=== PATIENT | female | born 1985 | race Caucasian/White ===

== ENCOUNTER 2016-04-17 10:41 | Emergency (ER) | payer SELFPAY ==
[2016-04-17 11:09] VITALS: BP 146/60
--- NOTE | 2016-04-17 13:03 | UC ---
Neck Pain HPI - HPI Summary HPI Summary: neck pain and left arm pain x 1 week. Pt states she fell down stairs then also fell on ice x 2 on the same day. Had CT done at [facility] which she was told was normal. Pt had anterior discectomy with Dr. Calderón from [facility] in July 2016. Pain got better after the surg, but now exacerbated by these recent falls. No new injury. - History of Current Complaint Chief Complaint: UCBackPain Stated Complaint: FALL-BACK INJURY Time Seen by Provider: 04/17/16 12:37 Hx Obtained From: Patient Hx Last Menstrual Period: 03/20/16 Onset/Duration Of Injury/Symptoms: Weeks - 1 Mechanism Of Injury: Blunt Trauma - fall down stairs, 04/10/16 then fell on ice x 2 same day. Onset/Duration: Sudden Onset, Lasting Weeks - 1, Still Present Severity: Severe Pain Intensity: 8 Pain Scale Used: 0-10 Numeric Location: Discrete At: - left neck and left arm Character: Sharp Aggravating Factors: Nothing Alleviating Factors: Nothing Associated Signs & Symptoms: Positive: Paresthesia - in left arm Related History: Previous Neck Injury - Allergies/Home Medications Allergies/Adverse Reactions: Allergies Allergy/AdvReac Type Severity Reaction Status Date / Time Tetanus Toxoid Allergy Severe fatigue, Verified 04/17/16 11:09 swelling Latex Allergy Rash Verified 04/17/16 11:09 Home Medications: Home Medications Tizanidine HCl 6 mg PO DAILY 04/17/16 [History Confirmed 04/17/16] PMH/Surg Hx/FS Hx/Imm Hx Previously Healthy: No - recovering alcoholic Endocrine History Of: Reports: Thyroid Disease - hypothyroidism Denies: Diabetes, Hyperthyroidism, Hypothyroidism Cardiovascular History Of: Denies: Cardiac Disorders, Hypertension Respiratory History Of: Reports: Asthma Neurological History Of: Denies: TIA, Seizures Psychological History Of: Denies: Anxiety, Depression - Surgical History Surgical History: Yes Surgery Procedure, Year, and Place: gastric bipass. T&A. C SECTION. GASTRIC BYPASS REVISION. [facility] - Family History Known Family History: Positive: Other - RA and osteoarthritis - Social History Occupation: Unemployed - just got fired today from [employer] Alcohol Use: Occasionally Alcohol Amount: recovering alcoholic--SOBER DATE 01/24/2015 Substance Use Type: None Smoking Status (MU): Former Smoker Type: Cigarettes Amount Used/How Often: 1/2 ppd Length of Time of Smoking/Using Tobacco: 12 yrs on/off Have You Smoked in the Last Year: Yes When Did the Patient Quit Smoking/Using Tobacco: 07/21/2015 - Immunization History Most Recent Influenza Vaccination: current Review Of Systems Constitutional: Positive: Negative Skin: Positive: Negative Eyes: Positive: Negative ENT: Positive: Negative Respiratory: Positive: Negative Cardiovascular: Positive: Negative Gastrointestinal: Positive: Negative Genitourinary: Positive: Negative, Other - LMP February, states she is not PG Musculoskeletal: Positive: Arthralgia, Myalgia All Other Systems Reviewed And Are Negative: Yes Physical Exam Triage Information Reviewed: Yes Appearance: Well-Appearing, Well-Nourished, Pain Distress Vital Signs: Initial Vital Signs Temp 98.4 F 04/17/16 11:02 Pulse 54 04/17/16 11:02 Resp 16 04/17/16 11:02 BP 146/60 04/17/16 11:02 Pulse Ox 99 04/17/16 11:02 Vital Signs Reviewed: Yes Eyes: Positive: Conjunctiva Clear ENT: Positive: Normal ENT inspection Neck: Positive: Supple, Tenderness @ - post spines and left paraspinous Respiratory: Positive: Lungs clear, Normal breath sounds, No respiratory distress Cardiovascular: Positive: RRR, No Murmur, Pulses Normal, Brisk Capillary Refill Musculoskeletal: Positive: Strength Intact, ROM Intact Neurological: Positive: Alert, Muscle Tone Normal Psychological: Positive: Normal Response To Family Skin: Positive: rashes Neck Pain Course/Dx - Differential Dx/Diagnosis Differential Dx/HQI/PQRI: Arthritis, Cervical Fracture, Sprain, Strain Provider Diagnoses: cervical strain s/p anterior discectomy Discharge - Discharge Plan Condition: Stable Disposition: HOME Prescriptions: HYDROcodone/ACETAMIN 5-325 MG* [[place] 5-325 TAB*] 1 tab PO Q4H PRN #18 tab MDD 6 PRN Reason: Pain Patient Education Materials: Cervical Strain (ED) Referrals: Brea Joseph PA [Primary Care Provider] - Additional Instructions: Dr. Abreu made an appointment for you on Wednesday at 10:50am. You appointment is with ALLAN Betts in the [address] office of [facility]. [address] You will still also have your appointment in June with Dr. Calderón. You need to go to [facility] and machine operator picker the xray disc of the imaging that you had done there, and bring that disc to your appointment on Wednesday Go to the Emergency Room if you have any new or worsening symptoms.
== END 2016-04-17 13:17 | disposition home or self-care (01) ==
LOC: UCCORT 10:41
DX: S16.1XXA Strain of muscle, fascia and tendon at neck level, initial encounter (principal); F10.21 Alcohol dependence, in remission; W00.1XXA Fall from stairs and steps due to ice and snow, initial encounter; Y92.9 Unspecified place or not applicable; Z87.891 Personal history of nicotine dependence; Z98.890 Other specified postprocedural states; Z98.84 Bariatric surgery status; Z88.8 Allergy status to other drugs, medicaments and biological substances
CPT/HCPCS: 81025; 99213; G0463

== ENCOUNTER 2016-05-17 10:26 | Emergency (ER) | payer OTHER ==
[2016-05-17 12:03] VITALS: BP 162/86
--- NOTE | 2016-05-17 12:53 | UC ---
Throat Pain/Nasal Wm HPI - HPI Summary HPI Summary: Pt presents with c/o sore throat, cough, body aches, nasal congestion X 4 days. And left side diaphragm rib pain with coughing began last night. Pt did not get flu vaccine Pt reports that she does not like to go to the "doctors office" states that her BP is only elevated when at the doctors office. Pt is on antihypertensive - History of Current Complaint Chief Complaint: UCGeneralIllness Stated Complaint: THROAT,COUGH,CONGESTION Time Seen by Provider: 05/17/16 12:29 Hx Last Menstrual Period: 03/20/16 ?: No Onset/Duration: Gradual Onset, Lasting Days - days Severity: Mild Cough: Nonproductive Associated Signs & Symptoms: Positive: Sinus Discomfort - states she has chronic sinusitis - Epiglottits Risk Factors Epiglottis Risk Factors: Negative - Allergies/Home Medications Allergies/Adverse Reactions: Allergies Allergy/AdvReac Type Severity Reaction Status Date / Time Tetanus Toxoid Allergy Severe fatigue, Verified 05/17/16 11:48 swelling Latex Allergy Rash Verified 05/17/16 11:48 Home Medications: Home Medications Citalopram TAB* [Celexa TAB*] 20 mg PO DAILY 05/17/16 [History Confirmed ] Lisinopril [Zestril 5 MG-] 5 mg PO DAILY 05/17/16 [History Confirmed 05/17/16] [id number] W/ APAP [Tylenol Cold & Flu Severe 7-02-152-325 mg] 2 tab PO Q4HR PRN 05/17/16 [History Confirmed 05/17/16] PMH/Surg Hx/FS Hx/Imm Hx Previously Healthy: Yes - see pmh Endocrine History Of: Reports: Thyroid Disease - hypothyroidism Denies: Diabetes, Hyperthyroidism, Hypothyroidism Cardiovascular History Of: Reports: Hypertension Denies: Cardiac Disorders Respiratory History Of: Reports: Asthma Neurological History Of: Denies: TIA, Seizures Psychological History Of: Denies: Anxiety, Depression - Surgical History Surgical History: Yes Surgery Procedure, Year, and Place: gastric bipass. T&A. C SECTION. GASTRIC BYPASS REVISION. [facility] - Family History Known Family History: Positive: None, Other - RA and osteoarthritis - Social History Alcohol Use: None Alcohol Amount: recovering alcoholic--SOBER DATE 01/24/2015 Substance Use Type: None Smoking Status (MU): Heavy Every Day Tobacco Smoker Type: Cigarettes Amount Used/How Often: 1/2 ppd Length of Time of Smoking/Using Tobacco: 12 yrs on/off Have You Smoked in the Last Year: Yes When Did the Patient Quit Smoking/Using Tobacco: 07/21/2015 - Immunization History Most Recent Influenza Vaccination: current Review of Systems Constitutional: Negative Skin: Negative Eyes: Negative ENT: Sore Throat, Other - nasal congestion Respiratory: Negative Cardiovascular: Negative Gastrointestinal: Negative Genitourinary: Negative Motor: Negative Neurovascular: Negative Musculoskeletal: Myalgia - left lower trunk ~ rib 10-11 Neurological: Negative Psychological: Negative All Other Systems Reviewed And Are Negative: Yes Physical Exam Triage Information Reviewed: Yes Appearance: Well-Appearing Vital Signs: Initial Vital Signs Temp 97.0 F 05/17/16 11:55 Pulse 113 05/17/16 11:55 Resp 20 05/17/16 11:55 BP 162/86 05/17/16 11:55 Pulse Ox 96 05/17/16 11:55 Vital Signs Reviewed: Yes Eye Exam: Normal ENT Exam: Other ENT: Positive: Nasal congestion Neck exam: Normal Respiratory Exam: Normal Cardiovascular Exam: Normal Cardiovascular: Positive: Tachycardia - see vitals, pt reports whtie coat syndrome Musculoskeletal Exam: Normal Neurological Exam: Normal Psychological Exam: Normal Skin Exam: Normal Throat Pain/Nasal Course/Dx - Differential Dx/Diagnosis Differential Diagnosis/HQI/PQRI: Influenza, Pharyngitis, Sinusitis, URI, Other - PE Provider Diagnoses: viral syndrome. elevated BP-on hypertensive Discharge - Discharge Plan Condition: Stable Disposition: HOME Patient Education Materials: Viral Syndrome (ED) Referrals: Brea James PA [Primary Care Provider] - If Needed Additional Instructions: Please follow up with your PCP or return to clinic as needed.
== END 2016-05-17 13:29 | disposition home or self-care (01) ==
LOC: UCCORT 10:26
DX: B34.9 Viral infection, unspecified (principal); I10 Essential (primary) hypertension; Z88.7 Allergy status to serum and vaccine; Z98.84 Bariatric surgery status; Z87.891 Personal history of nicotine dependence
CPT/HCPCS: 87502; 99211; G0463

== ENCOUNTER 2016-08-13 07:04 | Emergency (ER) | payer OTHER ==
[2016-08-13 07:19] VITALS: BP 136/92
--- NOTE | 2016-08-13 07:36 | UC ---
Respiratory Complaint HPI - HPI Summary HPI Summary: one week history of cough with production, malaise, laryngitis. Saw Dr. Garcia on 08/10 for evaluation of dizziness, and because of the cough, was given 3 days of oral steroid which have not relieve the coughing. Hx of gastric bypass, and has been gagging with cough. Productive of clear to purulent sputum. Smoker x 15 years, has quit in past. Hx of hypertension, has been off of her lisinopril for the past 2 weeks because she ran out. History of recurrent sinusitis. Has used albuterol x 2 overnight. - History of Current Complaint Chief Complaint: UCRespiratory Stated Complaint: COUGH CONGESTION Time Seen by Provider: 08/13/16 07:25 Hx Obtained From: Patient Hx Last Menstrual Period: few months ago - has irregular periods, has had neg preg tests ?: No Onset/Duration: Gradual Onset Timing: Intermittent Episodes Severity Initially: Moderate Severity Currently: Moderate Character: Cough: Productive Aggravating Factors: Exertion, Deep Breaths, Recumbent Position Alleviating Factors: OTC Meds Associated Signs And Symptoms: Positive: Dyspnea, Nasal Congestion, Hoarseness, Sinus Discomfort - Risk Factors Pulmonary Embolism Risk Factors: Smoking Cardiac Risk Factors: Hypertension, Smoking Pseudomonas Risk Factors: Negative - Allergies/Home Medications Allergies/Adverse Reactions: Allergies Allergy/AdvReac Type Severity Reaction Status Date / Time Tetanus Toxoid Allergy Severe fatigue, Verified 08/13/16 07:11 swelling Latex Allergy Rash Verified 08/13/16 07:11 Home Medications: Home Medications Fluticasone NASAL SPRAY 50MCG* [Flonase NASAL SPRAY 50MCG*] 2 spray BOTH NARES DAILY 08/13/16 [History Confirmed 08/13/16] GuaiFENesin DM* [Robitussin DM*] 10 ml PO Q6H PRN 08/13/16 [History Confirmed ] Ibuprofen TAB* [Motrin TAB* 800 MG] 800 mg PO Q6H PRN 08/13/16 [History Confirmed 08/13/16] guaiFENesin ER TAB [Mucinex*] 600 mg PO BID PRN 08/13/16 [History Confirmed ] PMH/Surg Hx/FS Hx/Imm Hx - Additional Past Medical History Additional PMH: currently vertigo is being evaluated by Dr. Garcia recovering alcoholic Endocrine History: Thyroid Disease Psychological History: Anxiety, Depression, Post Traumatic Stress Disorder - Surgical History Surgical History: Yes Surgery Procedure, Year, and Place: gastric bypass. T&A. C SECTION. GASTRIC BYPASS REVISION. [facility]. back surgery - Family History Known Family History: Positive: Hypertension - father, Other - RA and osteoarthritis grandfather had a stroke. 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 Lives: With Family Alcohol Use: None Alcohol Amount: recovering alcoholic 35 days sober Substance Use Type: None Smoking Status (MU): Heavy Every Day Tobacco Smoker Type: Cigarettes Amount Used/How Often: 1/2 ppd Length of Time of Smoking/Using Tobacco: 12 yrs on/off Have You Smoked in the Last Year: Yes When Did the Patient Quit Smoking/Using Tobacco: 07/21/2015 - Immunization History Most Recent Influenza Vaccination: current Review of Systems Constitutional: Fatigue - poor sleep all week Skin: Negative Eyes: Negative ENT: Sore Throat, Ear Ache Respiratory: Shortness Of Breath, Cough Cardiovascular: Negative Gastrointestinal: Nausea Genitourinary: Negative Motor: Negative Neurovascular: Negative Musculoskeletal: Negative Neurological: Negative Psychological: Other - treated depression All Other Systems Reviewed And Are Negative: Yes Physical Exam Triage Information Reviewed: Yes Appearance: Ill-Appearing - looks fatigued, Obese Vital Signs: Initial Vital Signs Temp 97.8 F 08/13/16 07:14 Pulse 78 08/13/16 07:14 Resp 16 08/13/16 07:14 BP 136/92 08/13/16 07:14 Pulse Ox 100 08/13/16 07:14 Eye Exam: Normal ENT: Positive: TM red - left TM dull, red, retracted. Dental Exam: Normal Neck: Positive: Supple, Nontender, No Lymphadenopathy, Other: - scar left neck Respiratory: Positive: Wheezing - throughout both lung maciel. Negative: Respiratory distress Cardiovascular: Positive: RRR, No Murmur Musculoskeletal Exam: Normal Neurological Exam: Normal Neurological: Positive: Alert, Muscle Tone Normal Psychological Exam: Normal Skin Exam: Normal UC Diagnostic Evaluation - Laboratory O2 Sat by Pulse Oximetry: 100 Respiratory Course/Dx - Course Course Of Treatment: augmentin for sinusitis/otitis. continue albuterol, add steroid inhaler. - Differential Dx/Diagnosis Differential Diagnosis/HQI/PQRI: Asthma, Laryngitis, Sinusitis Provider Diagnoses: left otitis media. sinusitis. exacerbation of asthma Discharge - Discharge Plan Condition: Stable Disposition: HOME Prescriptions: Amoxicillin/Clavulanate TAB* [Augmentin TAB 875*] 875 mg PO BID #20 tab Fluticasone HFA 110 mcg(NF) [Flovent HFA 110 mcg(NF)] 2 puff .SEE ORDER BID #1 mdi Patient Education Materials: Sinusitis (ED) Additional Instructions: Add a steroid inhaler to decrease wheeze and cough, and continue use of albuterol as needed. Augmentin has been prescribed to treat sinus and ear infection. Ensure that you stop smoking. Resume use of lisinopril to control hypertension. The antibiotic can decrease the effectiveness of your control; please ensure that you use additional protection until your next cycle.
== END 2016-08-13 07:55 | disposition home or self-care (01) ==
LOC: UCCORT 07:04
DX: H66.92 Otitis media, unspecified, left ear (principal); J32.9 Chronic sinusitis, unspecified; J45.901 Unspecified asthma with (acute) exacerbation; I10 Essential (primary) hypertension; E07.9 Disorder of thyroid, unspecified; F41.9 Anxiety disorder, unspecified; F32.9 Major depressive disorder, single episode, unspecified; Z98.84 Bariatric surgery status; Z88.7 Allergy status to serum and vaccine; Z91.040 Latex allergy status; Z87.891 Personal history of nicotine dependence
CPT/HCPCS: 99212; G0463

== ENCOUNTER 2016-08-17 10:28 | Emergency (ER) | payer OTHER ==
[2016-08-17 11:05] VITALS: BP 128/79
--- NOTE | 2016-08-17 11:35 | UC ---
Throat Pain/Nasal Wm HPI - HPI Summary HPI Summary: compalint of wen rubalcava nasal congestion and ear pain that sarte 2 weeks ago seen at urgent care 08/13/16 started on augmentin still has a cough which is sometimes productive still having ear pain denies fever and chills no smoking for 3 dasy - History of Current Complaint Chief Complaint: UCRespiratory Stated Complaint: UPPER RESPIRATORY Time Seen by Provider: 08/17/16 11:17 Hx Obtained From: Patient Hx Last Menstrual Period: unknown, states irregular cycle - Allergies/Home Medications Allergies/Adverse Reactions: Allergies Allergy/AdvReac Type Severity Reaction Status Date / Time Tetanus Toxoid Allergy Severe fatigue, Verified 08/17/16 11:03 swelling Latex Allergy Rash Verified 08/17/16 11:03 Home Medications: Home Medications buPROPion TAB* [Wellbutrin TAB*] 150 mg PO DAILY 08/17/16 [History Confirmed ] PMH/Surg Hx/FS Hx/Imm Hx Previously Healthy: No - bronchitis, vertigo Endocrine History: Hypothyroidism Cardiovascular History: Hypertension Psychological History: Anxiety, Depression - Surgical History Surgical History: Yes Surgery Procedure, Year, and Place: gastric bypass. T&A. C SECTION. GASTRIC BYPASS REVISION. [facility]. back surgery - Family History Known Family History: Positive: None, Hypertension - father, Other - RA and osteoarthritis grandfather had a stroke. - Social History Occupation: Employed Full-time Lives: With Family Alcohol Use: None Alcohol Amount: recovering alcoholic 35 days sober Substance Use Type: None Smoking Status (MU): Heavy Every Day Tobacco Smoker Type: Cigarettes Amount Used/How Often: 1/2 ppd Length of Time of Smoking/Using Tobacco: 12 yrs on/off Have You Smoked in the Last Year: Yes When Did the Patient Quit Smoking/Using Tobacco: 07/21/2015 - Immunization History Most Recent Influenza Vaccination: current Review of Systems Constitutional: Negative Skin: Negative Eyes: Negative ENT: Ear Ache, Nasal Discharge Respiratory: Cough Cardiovascular: Negative Gastrointestinal: Negative Genitourinary: Negative Motor: Negative Neurovascular: Negative Musculoskeletal: Negative Neurological: Negative Psychological: Negative All Other Systems Reviewed And Are Negative: Yes Physical Exam Triage Information Reviewed: Yes Appearance: No Pain Distress, Well-Nourished Vital Signs: Initial Vital Signs Temp 97.4 F 08/17/16 11:00 Pulse 66 08/17/16 11:00 Resp 16 06/26/17 11:00 BP 128/79 08/17/16 11:00 Pulse Ox 99 08/17/16 11:00 Vital Signs Reviewed: Yes Eyes: Positive: Conjunctiva Clear ENT: Positive: Nasal congestion, TMs normal, Other: - no sinus tenderness. Negative: TM red Neck: Positive: No Lymphadenopathy Respiratory: Positive: Lungs clear, No respiratory distress, Wheezing - in the bases Cardiovascular: Positive: RRR, No Murmur, Pulses Normal Abdomen Description: Positive: Nontender, Soft Bowel Sounds: Positive: Present Musculoskeletal: Positive: No Edema Neurological: Positive: Alert Psychological Exam: Normal Skin Exam: Normal Throat Pain/Nasal Course/Dx - Course Course Of Treatment: exam completed. reassurance givene to patient that she will keep improveing and needs to continue antibiotic and albuterol treatments. discussed s/s ofwhen to seek care - Differential Dx/Diagnosis Provider Diagnoses: asthma exacerbation Discharge - Discharge Plan Condition: Stable Disposition: HOME Patient Education Materials: Asthma (ED) Referrals: SHAISTA Harden [Primary Care Provider] - Additional Instructions: Please continue antibiotic as directed Use your albuterol inhaler every 4-6 hours when needed for wheezing, shortness of breath or uncontrolled coughing. Increase fluids and rest Take acetaminophen or ibuprofen for fever or pain Please review your discharge instructions. If your symptoms do not improve please call your primary care provider or return to urgent care.
== END 2016-08-17 11:53 | disposition home or self-care (01) ==
LOC: UCCORT 10:28
DX: J45.901 Unspecified asthma with (acute) exacerbation (principal); Z98.84 Bariatric surgery status; Z87.891 Personal history of nicotine dependence; F10.21 Alcohol dependence, in remission
CPT/HCPCS: 99211; G0463

== ENCOUNTER 2017-01-24 13:32 | Emergency (ER) | payer OTHER ==
[2017-01-24 15:26] VITALS: BP 120/90
--- NOTE | 2017-01-24 15:43 | UC ---
Throat Pain/Nasal Wm HPI - HPI Summary HPI Summary: per nurses triage:Pain generalized onset 01/17/17. Pt is on weaning schedule for gabapentin for suspected nerve source of pain. Pt reports sx are similar to ETOH withdrawal hx, including headaches, muscle spasms. Fibromyalgia dx was given 01/12/17. Pt fell 01/22/17 against right side of body. Pt is due to start Lyrica 02/03/17. - History of Current Complaint Chief Complaint: UCLowerExtremity Stated Complaint: BACK PAIN Time Seen by Provider: 01/24/17 15:14 Hx Obtained From: Patient Hx Last Menstrual Period: mid NOV ?: No Onset/Duration: Still Present, Worse Since - decreaseing gabapentin Severity: Mild - Allergies/Home Medications Allergies/Adverse Reactions: Allergies Allergy/AdvReac Type Severity Reaction Status Date / Time Tetanus Toxoid Allergy Severe fatigue, Verified 01/24/17 15:26 swelling Latex Allergy Rash Verified 01/24/17 15:26 Home Medications: Home Medications Acetaminophen [Acetaminophen Extra Stren] 1,000 mg PO Q6H PRN 01/24/17 [History Confirmed 01/24/17] Calcium Carbonate-Cholecalcife [Calcium 600+D 600-400 mg-Unit] 2 tab PO DAILY [History Confirmed 01/24/17] Cholecalciferol [Vitamin D] 1,000 unit PO DAILY 01/24/17 [History Confirmed 05/08] Disulfiram TAB* [Antabuse 250 MG TAB*] 250 mg PO BID 01/24/17 [History Confirmed 01/24/17] Gabapentin 400 mg PO BID 01/24/17 [History Confirmed 01/24/17] SUMAtriptan TAB* [Imitrex TAB*] 25 mg PO SEE INSTRUCTIONS PRN 01/24/17 [History Confirmed 01/24/17] Topiramate [Topiramate ER 25 mg cap] 2 tab PO BID 01/24/17 [History Confirmed ] tiZANidine TAB* [Zanaflex TAB*] 4 mg PO TID PRN 01/24/17 [History Confirmed 05/08] PMH/Surg Hx/FS Hx/Imm Hx Previously Healthy: Yes - Surgical History Surgical History: Yes Surgery Procedure, Year, and Place: gastric bypass. T&A. C SECTION. GASTRIC BYPASS REVISION. [facility]. back surgery - Family History Known Family History: Positive: None, Hypertension - father, Other - RA and osteoarthritis grandfather had a stroke. - Social History Alcohol Use: None Alcohol Amount: recovering alcoholic 160 days sober Substance Use Type: None Smoking Status (MU): Light Every Day Tobacco Smoker Type: Cigarettes Amount Used/How Often: 1/2 ppd Length of Time of Smoking/Using Tobacco: 12 yrs on/off Have You Smoked in the Last Year: Yes When Did the Patient Quit Smoking/Using Tobacco: 07/21/2015 - Immunization History Most Recent Influenza Vaccination: current Review of Systems Constitutional: Negative Skin: Negative Eyes: Negative ENT: Negative Respiratory: Negative Cardiovascular: Negative Gastrointestinal: Negative Genitourinary: Negative Motor: Negative Neurovascular: Negative Musculoskeletal: Arthralgia, Myalgia - right shoulder and right lknee and hip Is Patient Immunocompromised?: No All Other Systems Reviewed And Are Negative: Yes Physical Exam Triage Information Reviewed: Yes Appearance: Well-Appearing, Well-Nourished, Pain Distress Vital Signs: Initial Vital Signs Temp 98.6 F 01/24/17 15:13 Pulse 72 01/24/17 15:13 Resp 16 01/24/17 15:13 BP 120/90 01/24/17 15:13 Vital Signs Reviewed: Yes Eye Exam: Normal ENT Exam: Normal Dental Exam: Normal Neck exam: Normal Respiratory Exam: Normal Cardiovascular Exam: Normal Abdominal Exam: Normal Bowel Sounds: Positive: Present Musculoskeletal: Positive: No Edema, ROM Limited @ - inright shouler motion above the head, no deformity or swelling, full ROM of lower extremity Neurological Exam: Normal Neurological: Positive: Alert, Muscle Tone Normal Psychological Exam: Normal Skin Exam: Normal Throat Pain/Nasal Course/Dx - Course Course Of Treatment: hx obtained, exam performed ,meds reviewed, sling provided for her arm, pain is moslty in the lower and mid trapezius. she is walking without difficulty, no swelling of the knees or hip, no deformity. advised motrin and tylenol, heat and rest. continue with her rheumatologists pain management schedule - Differential Dx/Diagnosis Provider Diagnoses: right leg pain, right shoulder pain. fibromyalgia Discharge - Discharge Plan Condition: Stable Disposition: HOME Patient Education Materials: Musculoskeletal Pain (ED) Referrals: Kostas Smith MD [Medical Doctor] - Additional Instructions: 1. Take th etylenol and ibuprofen together every 4 hours as needed for the next few days. 2. Heat the shoulder and hip and knee as much as you can. 3. Follow up with the physician who is managing your pain.
[2017-01-24] MEDS ORDERED: Acetaminophen TAB* 325 MG PO ONE (16:03)
== END 2017-01-24 16:44 | disposition home or self-care (01) ==
LOC: UCCORT 13:32
DX: M25.561 Pain in right knee (principal); M25.551 Pain in right hip; M25.511 Pain in right shoulder; M79.7 Fibromyalgia; Z88.7 Allergy status to serum and vaccine; Z91.040 Latex allergy status; Z98.84 Bariatric surgery status; Z87.891 Personal history of nicotine dependence
CPT/HCPCS: 99213; A9270-GY; G0463

== ENCOUNTER 2018-02-05 09:50 | Emergency (ER) | payer OTHER ==
[2018-02-05 10:16] VITALS: BP 156/73
--- NOTE | 2018-02-05 10:41 | UC ---
Throat Pain/Nasal Wm HPI - HPI Summary HPI Summary: 32-year-old female presents with 1 month history of intermittent sore throat. States over the last 2 days sore throat has become more constant and severe with tonsilar swelling, white patches, and swollen lymph nodes. Associated with some left ear pain, chills, sweating, and nausea. Denies fever, headache, nasal congestion, sinus pain, dysphagia, chest pain, shortness of breath, wheezing, abdominal pain, vomiting, or diarrhea. - History of Current Complaint Chief Complaint: UCGeneralIllness Stated Complaint: THROAT COMPLAINT Time Seen by Provider: 02/05/18 10:15 Hx Obtained From: Patient Hx Last Menstrual Period: 12/27/17 Pain Intensity: 3 - Allergies/Home Medications Allergies/Adverse Reactions: Allergies Allergy/AdvReac Type Severity Reaction Status Date / Time Tetanus Vaccines and Toxoid Allergy Severe fatigue, Verified 02/05/18 10:17 swelling latex Allergy Intermediate Rash Verified 02/05/18 10:17 PMH/Surg Hx/FS Hx/Imm Hx Endocrine History: Hypothyroidism Respiratory History: Asthma Psychological History: Anxiety, Depression, Post Traumatic Stress Disorder - Surgical History Surgical History: Yes Surgery Procedure, Year, and Place: gastric bypass. T&A. C SECTION. GASTRIC BYPASS REVISION. COLD [facility] BX. back surgery - Family History Known Family History: Positive: None, Hypertension - father, Other - RA and osteoarthritis grandfather had a stroke. 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 Negative: Fever Skin: Negative: Rash Eyes: Negative: Drainage, Eye Redness ENT: Positive: Sore Throat, Ear Ache. Negative: Nasal Discharge, Sinus Congestion, Sinus Pain/Tenderness Respiratory: Negative: Shortness Of Breath, Cough Cardiovascular: Negative: Palpitations, Chest Pain Gastrointestinal: Positive: Nausea. Negative: Abdominal Pain, Vomiting, Diarrhea Is Patient Immunocompromised?: No Physical Exam - Summary Physical Exam Summary: GENERAL APPEARANCE: Well developed, well nourished, alert and cooperative, and appears to be in no acute distress. HEAD: Atraumatic. normocephalic. EYES: Conjunctiva clear. No discharge. EARS: External auditory canals clear. Hearing grossly intact. Right TM intact, opaque with good cone of light. Left TM erythematous and bulging. NOSE: No nasal discharge. THROAT: Oral cavity normal. Teeth and gingiva in good general condition. Pharyngeal erythema and exudates present. NECK: Neck supple. Mild anterior cervical lymphadenopathy with tenderness. CARDIAC: Normal S1 and S2. No S3, S4 or murmurs. Rhythm is regular. There is no peripheral edema, cyanosis or pallor. Extremities are warm and well perfused. Capillary refill is less than 2 seconds. LUNGS: Bilateral mild wheezes without rales or rhonchi. ABDOMEN: Positive bowel sounds. Soft, nondistended, nontender. No guarding or rebound. No masses or hepatosplenomegally. SKIN: Skin normal color, texture and turgor with no lesions or eruptions. Triage Information Reviewed: Yes Vital Signs: Initial Vital Signs Temp 98.1 F 02/05/18 10:13 Pulse 98 02/05/18 10:13 Resp 18 02/05/18 10:13 BP 156/73 02/05/18 10:13 Pulse Ox 98 02/05/18 10:13 Vital Signs Reviewed: Yes Diagnostics - Laboratory Diagnostic Studies Completed/Ordered: Rapid strep positive Throat Pain/Nasal Course/Dx - Course Course Of Treatment: 32-year-old female presents with 1 month history of intermittent sore throat. States over the last 2 days sore throat has become more constant and severe with tonsilar swelling, white patches, and swollen lymph nodes. Associated with some left ear pain, chills, sweating, and nausea. Denies fever, headache, nasal congestion, sinus pain, dysphagia, chest pain, shortness of breath, wheezing, abdominal pain, vomiting, or diarrhea. Afebrile. VSS. Exam revealed pharyngeal erythema, tonsilar exudate, anterior cervical lymphadenopathy, as well as a left otitis media. Rapid strep positive. With otits media present as well as the positive strep will treat with amoxicillin 875 mg BID x 10 days as well as symptomatic treatment. She is to follow up with her PCP in 2 weeks for recheck or sooner if problems. Warning symptoms reviewed. Verbalizes understanding and agrees with POC. - Differential Dx/Diagnosis Differential Diagnosis/HQI/PQRI: Mononucleosis, Pharyngitis, Tonsillitis, URI Provider Diagnosis: Strep pharyngitis, Left otitis media with effusion Discharge - Sign-Out/Discharge Documenting (check all that apply): Patient Departure All imaging exams completed and their final reports reviewed: No Studies - Discharge Plan Condition: Stable Disposition: HOME Prescriptions: Amoxicillin PO (*) [Amoxicillin 875 MG (*)] 875 mg PO BID #20 tab Patient Education Materials: Strep Throat (ED) Referrals: Kim Oconnor, NURSE ESTHETICIAN [Primary Care Provider] - 7 Days (If no improvement.) Additional Instructions: Your rapid strep test in the clinic today was positive. You also had evidence of a left ear infection. We will start you on an antibiotic to treat the infection. Start amoxicillin 875 mg 1 tab twice a day for 10 days. Be sure to complete the full 10 days even if you are feeling better. After you have been on antibiotics for 3 days, throw out your toothbrush and replace with a new one to prevent reinfection. Drink plenty of fluids to avoid dehydration especially if you are running any fever. Use salt water gargles several times a day. Take over the counter acetaminophen (Tylenol) or ibuprofen (Advil, Motrin) according to directions as needed for pain or fever. You may also use Chloraseptic spray or Cepacol lonzenges according to directions which contain a numbing medication and can provide some temporary relief from your sore throat. Follow up with your primary care provider in 2 weeks for recheck of symptoms. Sooner if needed. Seek immediate medical attention in the emergency room if you have fever greater than 100.5 F despite taking acetaminophen or ibuprofen, are unable to swallow or develop drooling, are unable to open your mouth fully, are unable to eat or drink, have pain that is not relieved with over the counter pain medication, there is drainage of blood coming from your ear, you have any difficulty breathing, or any worsening of symptoms. - Billing Disposition and Condition Condition: STABLE Disposition: Home
== END 2018-02-05 10:53 | disposition home or self-care (01) ==
LOC: UCCORT 09:50
DX: H65.92 Unspecified nonsuppurative otitis media, left ear (principal); Z88.7 Allergy status to serum and vaccine; J02.0 Streptococcal pharyngitis; Z87.891 Personal history of nicotine dependence
CPT/HCPCS: 87651; 99212; G0463

== ENCOUNTER 2018-04-08 13:43 | Emergency (ER) | payer OTHER ==
[2018-04-08 14:27] VITALS: BP 94/51
--- NOTE | 2018-04-08 14:54 | UC ---
Eye Complaint HPI - HPI Summary HPI Summary: The patient is a 32-year-old female with right eye redness, irritation, and discharge which has been progressively worsening since this morning. She does not wear contact lenses. I have warned body sensation. She has some mild sinus type symptoms. She is currently living in a [facility] house. She is been sober for 10 months. - History of Current Complaint Chief Complaint: UCEye Stated Complaint: RIGHT EYE COMPLAINT Time Seen by Provider: 04/08/18 14:44 Hx Obtained From: Patient Hx Last Menstrual Period: 03/14/18 Onset/Duration: Gradual Onset, Lasting Hours Timing: Constant Severity Initially: Mild Severity Currently: Moderate Pain Intensity: 2 Pain Scale Used: 0-10 Numeric Aggravating Factor(s): Nothing Alleviating Factor(s): Nothing Associated Signs And Symptoms: Positive: Drainage (Purulent). Negative: Photophobia, Fever, Swelling - Risk Factors Penetrating Injury Risk Factor: Negative Globe Rupture Risk Factors: Negative Acute Glaucoma Risk Factors: Negative - Allergies/Home Medications Allergies/Adverse Reactions: Allergies Allergy/AdvReac Type Severity Reaction Status Date / Time Tetanus Vaccines and Toxoid Allergy Severe fatigue, Verified 02/05/18 10:17 swelling latex Allergy Intermediate Rash Verified 02/05/18 10:17 adhesive tape Allergy Unknown Rash Verified 04/08/18 14:10 Home Medications: Home Medications Ascorbic Acid TAB* [Vitamin C TAB*] 500 mg PO DAILY 04/08/18 [History Confirmed 04/08/18] Buprenorp/Nalox 8-2 MG FILM [Suboxone 8 mg-2 mg Sl Film] 1.5 each SL DAILY 04/08 [History Confirmed 04/08/18] Ferrous Sulfate TAB* 325 mg PO DAILY 04/08/18 [History Confirmed 04/08/18] Lisinopril TAB* [Prinivil TAB*] 5 mg PO DAILY 04/08/18 [History Confirmed ] Mirtazapine TAB* [Remeron TAB*] 30 mg PO BEDTIME 04/08/18 [History Confirmed ] cloNIDine TAB* [Catapres 0.1 MG TAB*] 0.2 mg PO QID PRN 04/08/18 [History Confirmed 04/08/18] PMH/Surg Hx/FS Hx/Imm Hx Previously Healthy: Yes - hx opiate abuse Cardiovascular History: Hypertension - Surgical History Surgical History: Yes Surgery Procedure, Year, and Place: gastric bypass. T&A. C SECTION. GASTRIC BYPASS REVISION. COLD [facility]. back surgery - Family History Known Family History: Positive: Cardiac Disease, Hypertension - father, Diabetes , Other - RA and osteoarthritis grandfather had a stroke. - Social History Alcohol Use: None Alcohol Amount: RECOVERING ALCOHOLIC AND OPIATE DEPENDENCE Substance Use Type: Prescribed Smoking Status (MU): Light Every Day Tobacco Smoker Type: Cigarettes Amount Used/How Often: 1/2 ppd Length of Time of Smoking/Using Tobacco: 12 yrs on/off Have You Smoked in the Last Year: Yes When Did the Patient Quit Smoking/Using Tobacco: 07/21/2015 - Immunization History Most Recent Influenza Vaccination: current Review of Systems All Other Systems Reviewed And Are Negative: Yes Constitutional: Positive: Negative Skin: Positive: Negative Eyes: Positive: Drainage, Eye Redness ENT: Positive: Negative Respiratory: Positive: Negative Cardiovascular: Positive: Negative Gastrointestinal: Positive: Negative Genitourinary: Positive: Negative Motor: Positive: Negative Neurovascular: Positive: Negative Musculoskeletal: Positive: Negative Neurological: Positive: Negative Psychological: Positive: Negative Physical Exam Triage Information Reviewed: Yes Appearance: Well-Appearing, No Pain Distress Vital Signs: Initial Vital Signs Temp 98.2 F 04/08/18 14:17 Pulse 58 04/08/18 14:17 Resp 18 04/08/18 14:17 BP 94/51 04/08/18 14:17 Pulse Ox 99 04/08/18 14:17 Vital Signs Reviewed: Yes Eyes: Positive: Conjunctiva Inflamed - R, Discharge - R, Other: - EOMI/PERRL ENT: Positive: Hearing grossly normal, TMs normal, Uvula midline. Negative: Nasal congestion, Nasal drainage, Tonsillar swelling, Tonsillar exudate, Trismus , Muffled voice, Hoarse voice, Dental tenderness, Sinus tenderness Neck: Positive: Supple, Nontender, No Lymphadenopathy Respiratory: Positive: Lungs clear, Normal breath sounds, No respiratory distress, No accessory muscle use Cardiovascular: Positive: RRR, No Murmur, Pulses Normal Musculoskeletal: Positive: ROM Intact, No Edema Neurological: Positive: Alert Psychological Exam: Normal Skin Exam: Normal Eye Complaint Course/Dx - Differential Dx/Diagnosis Provider Diagnosis: Conjunctivitis, right eye Discharge - Sign-Out/Discharge Documenting (check all that apply): Patient Departure All imaging exams completed and their final reports reviewed: No Studies - Discharge Plan Condition: Stable Disposition: HOME Prescriptions: Polymyx/Trimethoprim OPTH* [Polytrim OPHTH*] 1 - 2 drop RIGHT EYE QID 7 Days #1 btl Patient Education Materials: Conjunctivitis (ED) Referrals: Kim Oconnor, TURF GROWER [Primary Care Provider] - 3 Days (if not better ) Additional Instructions: I suggest you get rechecked for worsening symptoms or if not better in 4 days If infection spreads to your left eye use the drops on it as well - Billing Disposition and Condition Condition: STABLE Disposition: Home
== END 2018-04-08 15:03 | disposition home or self-care (01) ==
LOC: UCCORT 13:43
DX: H10.9 Unspecified conjunctivitis (principal); I10 Essential (primary) hypertension; F17.210 Nicotine dependence, cigarettes, uncomplicated; Z91.09 Other allergy status, other than to drugs and biological substances; Z91.040 Latex allergy status; Z88.7 Allergy status to serum and vaccine; Z79.899 Other long term (current) drug therapy
CPT/HCPCS: 99212; G0463

== ENCOUNTER 2018-11-06 12:06 | Emergency (ER) | payer OTHER ==
[2018-11-06 12:39] VITALS: BP 107/65
--- NOTE | 2018-11-06 13:08 | UC ---
Respiratory Complaint HPI - HPI Summary HPI Summary: 32 year woman, hx of smoking, with 6 day hx of cough and shortness of breath, causing her to use albuterol up to 3 times per day. Past use of steroid inhaler , but not recently. No fever. Cough productive of green to white to yellow sputum. Just left [address] and returned home several days ago. - History of Current Complaint Chief Complaint: UCRespiratory Stated Complaint: COUGH Time Seen by Provider: 11/06/18 12:57 Hx Obtained From: Patient Hx Last Menstrual Period: 10/15 then spotting one week later ?: No Onset/Duration: Gradual Onset, Lasting Days - 6 Severity Initially: Mild Severity Currently: Moderate Pain Intensity: 4 Character: Cough: Productive, Sputum Description: - white to green to yellow Aggravating Factors: Deep Breaths Alleviating Factors: Bronchodilator, Upright Position Associated Signs And Symptoms: Positive: Dyspnea, Wheezing, URI, Nasal Congestion - Risk Factors Pulmonary Embolism Risk Factors: Smoking Cardiac Risk Factors: Hypertension, Smoking Pseudomonas Risk Factors: Negative Tuberculosis Risk Factors: Negative - Allergies/Home Medications Allergies/Adverse Reactions: Allergies Allergy/AdvReac Type Severity Reaction Status Date / Time Tetanus Vaccines and Toxoid Allergy Severe fatigue, Verified 11/06/18 12:41 swelling latex Allergy Intermediate Rash Verified 11/06/18 12:41 adhesive tape Allergy Unknown Rash Verified 11/06/18 12:41 Home Medications: Home Medications Calcium With D 1 tab PO QPM 11/06/18 [History Confirmed 11/06/18] Loratadine 10 mg PO DAILY 11/06/18 [History Confirmed 11/06/18] Multivitamin [Multiple Vitamins] 1 tab PO DAILY 11/06/18 [History Confirmed ] Prazosin CAP* [Minipress CAP*] 2 mg PO QPM 11/06/18 [History Confirmed 11/06/18] Pregabalin [Lyrica] 75 mg PO BID 11/06/18 [History Confirmed 11/06/18] PMH/Surg Hx/FS Hx/Imm Hx Cardiovascular History: Hypertension Psychological History: Depression, Other - history of drug dependency and addiction - Surgical History Surgical History: Yes Surgery Procedure, Year, and Place: gastric bypass. T&A. C SECTION. GASTRIC BYPASS REVISION. COLD [facility]. back surgery - Family History Known Family History: Positive: Cardiac Disease, Hypertension - father, Diabetes , Other - RA and osteoarthritis grandfather had a stroke. - Social History Occupation: Employed Full-time Lives: With Family Alcohol Use: None Alcohol Amount: RECOVERING ALCOHOLIC AND OPIATE DEPENDENCE Substance Use Type: Prescribed Smoking Status (MU): Light Every Day Tobacco Smoker Type: Cigarettes Amount Used/How Often: 1/2 ppd Length of Time of Smoking/Using Tobacco: 12 yrs on/off Have You Smoked in the Last Year: Yes When Did the Patient Quit Smoking/Using Tobacco: 07/21/2015 - Immunization History Most Recent Influenza Vaccination: current Review of Systems All Other Systems Reviewed And Are Negative: Yes Constitutional: Positive: Fatigue ENT: Positive: Sinus Congestion Respiratory: Positive: Shortness Of Breath, Cough Cardiovascular: Negative: Palpitations, Chest Pain Gastrointestinal: Positive: Negative Genitourinary: Positive: Negative. Negative: Dysuria Motor: Positive: Negative Neurovascular: Positive: Negative Neurological: Positive: Negative Is Patient Immunocompromised?: No Physical Exam Triage Information Reviewed: Yes Appearance: Ill-Appearing - pale, looks mildly unwell Vital Signs: Initial Vital Signs Temp 97.3 F 11/06/18 12:29 Pulse 48 11/06/18 12:29 Resp 20 11/06/18 12:29 BP 107/65 11/06/18 12:29 Pulse Ox 100 11/06/18 12:29 Eyes: Positive: Conjunctiva Clear ENT: Positive: Pharyngeal erythema - past tonsillectomy, TMs normal Dental Exam: Normal Neck: Positive: Supple, Nontender, No Lymphadenopathy Respiratory: Positive: Decreased breath sounds, Wheezing - late expiratory wheeze both lung maciel Cardiovascular: Positive: RRR, Bradycardia, Murmur:Sys:Grade _?_/ - 2/6 JERARDO left sternal border. Musculoskeletal Exam: Normal Musculoskeletal: Positive: Strength Intact, No Edema Neurological Exam: Normal Psychological Exam: Normal Skin Exam: Normal Respiratory Course/Dx - Course Course Of Treatment: Discussed antibiotic treatment given duration of symptoms and purulent sputum in setting of smoking. Will add steroid inhaler to decrease wheeze and improve breathing, continue use of albuterol - Differential Dx/Diagnosis Differential Diagnosis/HQI/PQRI: Asthma, Bronchitis, Lower Resp Infection, Sinusitis Provider Diagnosis: Bronchitis Discharge ED - Sign-Out/Discharge Documenting (check all that apply): Patient Departure All imaging exams completed and their final reports reviewed: No Studies - Discharge Plan Condition: Stable Disposition: HOME Prescriptions: Amoxicillin PO (*) [Amoxicillin 875 MG (*)] 875 mg PO BID #14 tab Fluticasone HFA 110 mcg(NF) [Flovent HFA 110 mcg(NF)] 2 puff INH BID #1 mdi Patient Education Materials: Acute Bronchitis (ED) Forms: *Work Release Referrals: Kim Oconnor CLIENT SUPPORT MANAGER [Primary Care Provider] - Additional Instructions: Rest at home today, and increase fluids. Begin amoxicillin as an antibiotic, and use inhalers to relieve wheeze and shortness of breath. Use Flovent 2 puffs twice daily to decrease airway inflammation. RINSE MOUTH AFTER USE TO DECREASE THE RISK OF ORAL THRUSH--SWISH AND SPIT WATER. FOLLOW UP IF YOU HAVE INCREASING FEVER OR SHORTNESS OF BREATH. - Billing Disposition and Condition Condition: STABLE Disposition: Home
== END 2018-11-06 13:35 | disposition home or self-care (01) ==
LOC: UCCORT 12:06
DX: J40 Bronchitis, not specified as acute or chronic (principal); I10 Essential (primary) hypertension; F17.210 Nicotine dependence, cigarettes, uncomplicated
CPT/HCPCS: 99212; G0463

== ENCOUNTER 2018-12-02 07:12 | Emergency (ER) | payer OTHER ==
[2018-12-02 07:38] VITALS: BP 147/87
--- NOTE | 2018-12-02 07:54 | UC ---
UC General HPI - HPI Summary HPI Summary: 32 yo woman with multiple medical problems including asthma, with 2 days history of congestion, cough and nausea with frequent dry heaves and phlegmy vomitus. No fever. Hx of ear tubes. Has been using flovent but not albuterol as she does not know where her inhaler is. - History of Current Complaint Chief Complaint: UCRespiratory Stated Complaint: COUGH,POST NASAL DRIP,VOMITTING Time Seen by Provider: 12/02/18 07:41 Hx Obtained From: Patient Hx Last Menstrual Period: EARLY OCT, PT NOT SURE OF DATE, PERIODS ARE IRREGULAR Onset/Duration: Gradual Onset, Lasting Days Onset Severity: Moderate Current Severity: Moderate Pain Intensity: 5 Associated Signs & Symptoms: Positive: Cough, Decreased Oral Intake, Nausea, SOB , Vomiting, Wheezing. Negative: Back Pain, Diarrhea, Hemoptysis - Allergy/Home Medications Allergies/Adverse Reactions: Allergies Allergy/AdvReac Type Severity Reaction Status Date / Time Tetanus Vaccines and Toxoid Allergy Severe fatigue, Verified 12/02/18 07:26 swelling latex Allergy Intermediate Rash Verified 12/02/18 07:26 adhesive tape Allergy Unknown Rash Verified 12/02/18 07:26 Home Medications: Home Medications Acetaminophen [Tylenol Extra Strength] 1,000 mg PO PRN 12/02/18 [History] PMH/Surg Hx/FS Hx/Imm Hx - Additional Past Medical History Additional PMH: Alcohol abuse in recovery Endocrine History: Hypothyroidism Cardiovascular History: Hypertension Respiratory History: Asthma Psychological History: Anxiety, Depression - Surgical History Surgical History: Yes Surgery Procedure, Year, and Place: gastric bypass. T&A. C SECTION. GASTRIC BYPASS REVISION. COLD [facility] BX. back surgery - Family History Known Family History: Positive: None, Cardiac Disease, Hypertension - father, Diabetes, Other - RA and osteoarthritis grandfather had a stroke. - Social History Alcohol Use: None Alcohol Amount: RECOVERING ALCOHOLIC AND OPIATE DEPENDENCE Substance Use Type: Prescribed Smoking Status (MU): Light Every Day Tobacco Smoker Type: Cigarettes Amount Used/How Often: 1/2 ppd Length of Time of Smoking/Using Tobacco: 12 yrs on/off Have You Smoked in the Last Year: Yes When Did the Patient Quit Smoking/Using Tobacco: 07/21/2015 Household Exposure Type: Cigarettes - Immunization History Most Recent Influenza Vaccination: current Review of Systems All Other Systems Reviewed And Are Negative: Yes Constitutional: Positive: Fever - subjective, Chills, Fatigue Eyes: Positive: Negative ENT: Positive: Sore Throat, Ear Ache, Sinus Congestion Respiratory: Positive: Shortness Of Breath, Cough Cardiovascular: Positive: Negative Gastrointestinal: Positive: Vomiting, Nausea Genitourinary: Positive: Negative Motor: Positive: Negative Neurovascular: Positive: Negative Musculoskeletal: Positive: Negative Neurological: Positive: Headache Psychological: Positive: Negative Is Patient Immunocompromised?: No Physical Exam Triage Information Reviewed: Yes Appearance: Ill-Appearing Vital Signs: Initial Vital Signs Temp 98.5 F 12/02/18 07:30 Pulse 88 12/02/18 07:30 Resp 16 12/02/18 07:30 BP 147/87 12/02/18 07:30 Pulse Ox 97 12/02/18 07:30 ENT: Positive: Pharyngeal erythema, TM dull, TM red - left TM red and bulging, tube in canal Neck: Positive: Supple, Nontender, No Lymphadenopathy Respiratory: Positive: Decreased breath sounds, Wheezing - with expiration Cardiovascular: Positive: RRR, No Murmur Abdomen Description: Positive: Nontender, No Organomegaly, Soft Musculoskeletal Exam: Normal Neurological: Positive: Alert Psychological Exam: Normal Skin Exam: Other Course/Dx - Course Course Of Treatment: prednisone, amoxicillin, albuterol. - Differential Dx - Multi-Symptom Differential Diagnoses: Other - asthma exacerbation, nausea and vomiting. - Diagnoses Provider Diagnosis: Asthma exacerbation Discharge ED - Sign-Out/Discharge Documenting (check all that apply): Patient Departure All imaging exams completed and their final reports reviewed: No Studies - Discharge Plan Condition: Stable Disposition: HOME Prescriptions: Albuterol HFA INHALER* [Ventolin HFA Inhaler*] 2 puff INH Q6H PRN #1 mdi PRN Reason: Wheezing Amoxicillin PO (*) [Amoxicillin 875 MG (*)] 875 mg PO BID #14 tab predniSONE [Prednisone 20 MG TAB] 40 mg PO DAILY #10 tablet Patient Education Materials: Ear Infection (ED), Asthma (ED) Forms: *Work Release Referrals: Kim Oconnor NP [Primary Care Provider] - Additional Instructions: use amoxicillin for treatment of left ear infection and sinus infection. Continue daily flovent and add albuterol for current wheezing. Take prednisone 40mg daily; today ensure that you take this several hours after compazine,which was given to settle your nausea and vomiting. If you develop a yeast infection, use over the counter monistat (fluconazole can provoke an arrhythmia because of the meds you take.). follow up with your primary doctor if you are not seeing improvement; please go to the emergency room if you continue to have vomiting. - Billing Disposition and Condition Condition: STABLE Disposition: Home
[2018-12-02] MEDS ORDERED: Prochlorperazine TAB* 5 MG PO ONE ×2 (07:55→08:02)
== END 2018-12-02 08:22 | disposition home or self-care (01) ==
LOC: UCCORT 07:12
DX: J45.901 Unspecified asthma with (acute) exacerbation (principal); R11.2 Nausea with vomiting, unspecified; I10 Essential (primary) hypertension; F17.210 Nicotine dependence, cigarettes, uncomplicated; Z88.7 Allergy status to serum and vaccine; Z91.040 Latex allergy status; Z91.09 Other allergy status, other than to drugs and biological substances
CPT/HCPCS: 99212; A9270-GY; G0463

== ENCOUNTER 2022-05-01 09:13 | Inpatient (IN) ==
[2022-05-01] MEDS ORDERED: Lactated Ringers 1000 ml BAG 1,000 ML IV ONE ×2 (09:25→15:36)
[2022-05-01] MEDS ORDERED: LORazepam 2 mg VIAL 1 ml IV PUSH ONE ×2 (09:29→11:55)
[2022-05-01] MEDS ORDERED: Lorazepam PYXIS KEY PRN ×3 (09:29→13:17)
[2022-05-01] MEDS ORDERED: LORazepam 2 mg VIAL 1 ml ONE (09:38)
[2022-05-01 09:47] LABS: ABS Eosinophils 0.1 10^3/ul (0-0.6); ABS Lymphocytes 2.4 10^3/ul (1.0-4.8); ABS Monocytes 0.5 10^3/ul (0-0.8); ABS Neutrophils 2.1 10^3/ul (1.5-7.7); Eosinophil % 1.4 %; Hematocrit 39 % (35-47); Hemoglobin 13.2 g/dL (12.0-16.0); Lymphocyte % 47.6 %; Mean Corpuscular HGB Conc 34 g/dL (31-36); Mean Corpuscular Hemoglobin 32 pg (27-31); Mean Corpuscular Volume 94 fL (80-97); Mean Platelet Volume 8.2 fL (7.4-10.4); Nucleated Red Blood Cells % 0.1; Platelet Count 215 10^3/uL (150-450); Red Blood Count 4.19 10^6 /uL (3.70-4.87); Red Cell Distribution Width 13 % (10-15); White Blood Count 5.1 10^3/uL (3.5-10.8)
[2022-05-01 10:07] LABS: ALT 22 U/L (7-52); AST 18 U/L (13-39); Albumin/Globulin Ratio 1.5 (1-3); Alcohol, S < 13 mg/dL (<13); Alkaline Phosphatase 65 U/L (35-149); Anion Gap 12 mmol/L (2-11); Blood Urea Nitrogen 10 mg/dL (6-24); CO2 Carbon Dioxide 18 mmol/L (22-32); Calcium 8.5 mg/dL (8.6-10.3); Chloride 107 mmol/L (101-111); Globulin 2.7 g/dL (2-4); Glucose 90 mg/dL (70-100); Potassium 3.7 mmol/L (3.5-5.0); Sodium 137 mmol/L (135-145); Total Protein 6.7 g/dL (6.4-8.9); eGFR CKD-EPI 97.3 (>60)
[2022-05-01 10:14] LABS: HCG Pregnancy < 0.60 mIU/mL
[2022-05-01 10:44] LABS: Urine Appearance Clear; Urine Bilirubin Negative (Negative); Urine Blood Negative (Negative); Urine Color Yellow; Urine Glucose Negative (Negative); Urine Ketones Negative (Negative); Urine Nitrite Negative (Negative); Urine Protein 1+(30 mg/dL) (Negative); Urine Specific Gravity 1.019 (1.002-1.030); Urine Urobilinogen Negative (Negative)
[2022-05-01 10:51] LABS: PCO2 Arterial 38 mmHg (35-45); PO2 Arterial 115 mmHg (80-100)
[2022-05-01 10:53] LABS: Urine Bacteria Absent (Absent); Urine Red Blood Cell Trace(0-2/hpf) (Absent); Urine Squamous Epithelial Cell Present (Absent); Urine White Blood Cell Trace(0-5/hpf) (Absent)
[2022-05-01 10:54] LABS: Urine Benzodiazepine Screen None Detected (None Detect); Urine Cannabinoids Screen None Detected (None Detect); Urine Opiates Screen None Detected (None Detect)
[2022-05-01 10:58] LABS: Venous Bicarbonate HCO3 14.5 mmol/L (24-28)
[2022-05-01] MEDS ORDERED: Polyethylene Glycol 3350 17 GM PACKET PO PRN (12:55)
[2022-05-01] MEDS ORDERED: LORazepam 2 mg VIAL 1 ml IV PUSH PRN (13:17)
[2022-05-01 13:42] LABS: Creatine Kinase 57 U/L (10-223)
[2022-05-01 13:58] LABS: Salicylate < 2.50 mg/dL (<30)
[2022-05-01 14:08] LABS: C Reactive Protein 1.56 mg/L (<8.01)
[2022-05-01 14:32] LABS: Vitamin B12 > 1450 pg/mL (180-914)
[2022-05-01 15:24] LABS: Erythrocyte Sed Rate 4 mm/Hr (0-19)
[2022-05-01] MEDS ORDERED: Charcoal ACTIVATED 50 GM/240 ML BTL PO ONE (16:51)
[2022-05-01] MEDS: Acetaminophen IV 1 GM/100ML 1,000 MG/100 ML BAG IV PRN (18:00)
[2022-05-01] MEDS: Thiamine 100 MG/ML 2 ml VIAL 500 MG in NS 0.9% 250 ml 250 ML IV SCH (18:10)
[2022-05-02 08:32] LABS: ABS Lymphocytes 1.9 10^3/ul (1.0-4.8); ABS Monocytes 0.5 10^3/ul (0-0.8); ABS Neutrophils 3.2 10^3/ul (1.5-7.7); Eosinophil % 0.7 %; Hematocrit 36 % (35-47); Hemoglobin 12.3 g/dL (12.0-16.0); Lymphocyte % 33.8 %; Mean Corpuscular HGB Conc 34 g/dL (31-36); Mean Corpuscular Hemoglobin 31 pg (27-31); Mean Corpuscular Volume 92 fL (80-97); Mean Platelet Volume 8.3 fL (7.4-10.4); Platelet Count 217 10^3/uL (150-450); Red Blood Count 3.93 10^6 /uL (3.70-4.87); Red Cell Distribution Width 13 % (10-15); White Blood Count 5.6 10^3/uL (3.5-10.8)
[2022-05-02 08:45] LABS: Albumin 3.8 g/dL (3.2-5.2); Albumin/Globulin Ratio 1.6 (1-3); Calcium 8.9 mg/dL (8.6-10.3); Creatinine, Serum 0.58 mg/dL (0.51-0.95); Globulin 2.4 g/dL (2-4); Magnesium 1.4 mg/dL (1.9-2.7); Potassium 4.1 mmol/L (3.5-5.0); Total Bilirubin 0.3 mg/dL (0.2-1.0); Total Protein 6.2 g/dL (6.4-8.9); eGFR CKD-EPI 119.5 (>60)
[2022-05-02 09:00] LABS: TSH Ultra Thyroid Stim Horm 2.52 mcIU/mL (0.34-5.60)
[2022-05-02 09:06] LABS: Thyroid Peroxidase Antibodies 0.45 IU/mL (<9)
[2022-05-02] MEDS: Multivitamins/Minerals TAB PO SCH (09:08)
[2022-05-02] MEDS: Acetaminophen IV 1 GM/100ML 1,000 MG/100 ML BAG IV PRN ×2 (09:22→18:16)
[2022-05-02] MEDS: Magnesium Sulfate 2 gm BAG 2 GM/50 ML BAG IVPB SCH ×2 (14:16→17:15)
[2022-05-02] MEDS: Thiamine 100 MG/ML 2 ml VIAL 500 MG in NS 0.9% 250 ml 250 ML IV SCH (15:24)
[2022-05-03 07:33] LABS: ABS Eosinophils 0.1 10^3/ul (0-0.6); ABS Lymphocytes 2.3 10^3/ul (1.0-4.8); ABS Monocytes 0.5 10^3/ul (0-0.8); ABS Neutrophils 4.2 10^3/ul (1.5-7.7); Hematocrit 39 % (35-47); Hemoglobin 12.9 g/dL (12.0-16.0); Lymphocyte % 32.4 %; Mean Corpuscular HGB Conc 33 g/dL (31-36); Mean Corpuscular Hemoglobin 31 pg (27-31); Mean Corpuscular Volume 94 fL (80-97); Mean Platelet Volume 7.9 fL (7.4-10.4); Nucleated Red Blood Cells % 0.1; Platelet Count 233 10^3/uL (150-450); Red Blood Count 4.11 10^6 /uL (3.70-4.87); Red Cell Distribution Width 13 % (10-15); White Blood Count 7.1 10^3/uL (3.5-10.8)
[2022-05-03 07:46] LABS: Creatinine, Serum 0.64 mg/dL (0.51-0.95); Magnesium 1.7 mg/dL (1.9-2.7); Potassium 3.7 mmol/L (3.5-5.0); eGFR CKD-EPI 116.7 (>60)
[2022-05-03] MEDS: Multivitamins/Minerals TAB PO SCH (09:58)
[2022-05-03] MEDS ORDERED: Al Hydrox/Mg Hydrox/Simet LIQ 30 ML UDC PO PRN (14:49)
[2022-05-03] MEDS: Thiamine 100 MG/ML 2 ml VIAL 500 MG in NS 0.9% 250 ml 250 ML IV SCH (15:18)
[2022-05-04 08:31] LABS: HDL Cholesterol 58.8 mg/dL
[2022-05-04 08:57] VITALS: BP 126/52
[2022-05-04] MEDS: Multivitamins/Minerals TAB PO SCH (09:26)
== END 2022-05-04 12:27 | disposition home or self-care (01) | DRG 812 ==
LOC: ED 09:13 → EDHOLD 09:13 → OBSVTOIN 12:55 → EDHOLD 16:05 → MEDTELE 16:52 → BSU 05-03 14:20
PROVIDERS: ADMIT Internal Medicine; ATTEND Internal Medicine